=== PATIENT | female | born 1985 | race Caucasian/White ===

== ENCOUNTER → 2017-08-16 | Outpatient (CLI) | payer OTHER ==
[~2017-08-16] MED LIST: Z.0.NO CURRENT MEDS
== END ==
LOC: HPND 14:12
PROVIDERS: ATTEND Obstetrics & Gynecology
DX: O35.8XX0 Maternal care for other (suspected) fetal abnormality and damage, not applicable or unspecified (principal); O28.3 Abnormal ultrasonic finding on antenatal screening of mother
CPT/HCPCS: 76811

== ENCOUNTER → 2017-10-30 | Outpatient (CLI) | payer OTHER | LOC: HPND 08:58 | PROVIDERS: ATTEND Obstetrics & Gynecology | DX: O35.8XX0 Maternal care for other (suspected) fetal abnormality and damage, not applicable or unspecified (principal) | CPT/HCPCS: 76816 ==